=== PATIENT | female | born 1970 | race Caucasian/White ===

== ENCOUNTER → 2016-09-06 | Outpatient (CLI) | payer BC ==
[~2016-09-06] MED LIST: AZEL15GE TOP; DOXY20TA3 PO; SPIR50TA3 PO
== END | disposition home or self-care (01) ==
LOC: C.PAPS 13:18
PROVIDERS: ATTEND Obstetrics & Gynecology
DX: Z01.419 Encounter for gynecological examination (general) (routine) without abnormal findings (principal)

== ENCOUNTER → 2016-10-19 | Outpatient (CLI) | payer BC ==
--- NOTE | 2016-10-19 14:42 | MAMMOGRAPHY REPORT ---
BILATERAL DIGITAL SCREENING MAMMOGRAM TOMOSYNTHESIS WITH CAD: 10/19/2016 CLINICAL HISTORY: Routine screening. Patient has no complaints. TECHNIQUE: Breast tomosynthesis in addition to standard 2D mammography was performed. Current study was also evaluated with a Computer Aided Detection (CAD) system. COMPARISON: Comparison is made to exams dated: 10/14/2015 mammogram, 10/10/2014 mammogram, 10/08/2013 mammogram, 10/05/2012 mammogram, 10/04/2011 mammogram, and 09/27/2010 mammogram - [facility]. BREAST COMPOSITION: The tissue of both breasts is extremely dense, which lowers the sensitivity of mammography. FINDINGS: No suspicious masses, calcifications, or areas of architectural distortion are noted in e ither breast. There has been no significant interval change compared to prior exams. IMPRESSION: ACR BI-RADS CATEGORY 1: NEGATIVE There is no mammographic evidence of malignancy. A 1 year screening mammogram is recommended. The p atient will receive written notification of the results. Approximately 10% of breast cancers are not detected with mammography. A negative mammographic repor t should not delay biopsy if a clinically suggestive mass is present. Gayle Salinas M.D. ah/:10/19/2016 07:55:21 Bull Bucker: Kathleen DURON([place])(M), [facility] letter sent: Normal 1/2 BI-RADS Code: ACR BI-RADS Category 1: Negative
== END | disposition home or self-care (01) ==
LOC: C.MAMM 07:26
PROVIDERS: ATTEND Obstetrics & Gynecology
DX: Z12.31 Encounter for screening mammogram for malignant neoplasm of breast (principal)

== ENCOUNTER → 2017-09-08 | Outpatient (CLI) | payer OTHER | END | disposition home or self-care (01) | LOC: C.PAPS 11:35 | PROVIDERS: ATTEND Obstetrics & Gynecology | DX: Z01.419 Encounter for gynecological examination (general) (routine) without abnormal findings (principal); Z11.51 Encounter for screening for human papillomavirus (HPV) ==

== ENCOUNTER → 2017-10-03 | Outpatient (CLI) | payer OTHER ==
--- NOTE | 2017-10-03 12:44 | DIAGNOSTIC IMAGING REPORT ---
R HIP UNILATERAL 2 VIEWS, L HIP UNILATERAL 2 VIEWS, SI JOINTS 3 OR MORE VIEWS HISTORY: 47 years-old Female M53.3,M54.5,R10.2 chronic hip, pelvic and low back pain COMPARISON: None available TECHNIQUE: 2 views of the bilateral hips and 3 views of the SI joints FINDINGS: RIGHT HIP: No acute fracture, dislocation or significant degenerative changes. The imaged right hemipelvis appears intact. LEFT HIP: There is no acute fracture, dislocation or significant degenerative changes. The imaged left hemipelvis appears intact. SI JOINTS: No acute fracture, dislocation or significant degenerative changes. No erosive changes to suggest sacroiliitis. The imaged soft tissues appear unremarkable. IMPRESSION: No acute fracture or dislocation. The above report was generated using voice recognition software. It may contain grammatical, syntax or spelling errors. Electronically signed by: Mika Lynne M.D. 10/03/2017 12:42 PM Dictated Date/Time: 10/03/2017 12:39 PM
--- NOTE | 2017-10-03 12:44 | DIAGNOSTIC IMAGING REPORT ---
L-SPINE MIN 4 VIEWS ROUTINE CLINICAL HISTORY: M53.3,M54.5,R10.2 persistent low back pain COMPARISON STUDY: No previous studies for comparison. FINDINGS: No fractures or subluxations are visualized. No destructive lesions are evident. There are minor degenerative changes. IMPRESSION: Minor degenerative change. No fractures subluxations or destructive lesions are visualized Electronically signed by: Aime Kincaid M.D. 10/03/2017 12:42 PM Dictated Date/Time: 10/03/2017 12:41 PM
--- NOTE | 2017-10-03 12:54 | DIAGNOSTIC IMAGING REPORT ---
LEG LENGTH STUDY (WHOLE LEG) CLINICAL HISTORY: M53.3,M54.5,R10.2 leg length discrepancy COMPARISON STUDY: None FINDINGS: Maximum overall leg length of the right leg is 84.3 cm maximum overall leg length on the left is 84.9 cm differential is 6 mm. IMPRESSION: 6 mm leg length discrepancy with the leg length on the left longer than the right. The above report was generated using voice recognition software. It may contain grammatical, syntax or spelling errors. Electronically signed by: Orlando Choi M.D. 10/03/2017 12:52 PM Dictated Date/Time: 10/03/2017 12:42 PM
== END | disposition home or self-care (01) ==
LOC: C.RADBC 12:00
PROVIDERS: ATTEND Internal Medicine
DX: R10.2 Pelvic and perineal pain (principal); M54.5 Low back pain; M53.3 Sacrococcygeal disorders, not elsewhere classified

== ENCOUNTER → 2017-11-17 | Outpatient (CLI) | payer OTHER ==
[~2017-11-17] MED LIST changes: -AZEL15GE TOP; +IVER1CRE; -SPIR50TA3 PO
--- NOTE | 2017-11-20 14:33 | MAMMOGRAPHY REPORT ---
BILATERAL DIGITAL SCREENING MAMMOGRAM TOMOSYNTHESIS WITH CAD: 11/17/2017 CLINICAL HISTORY: Routine screening. Patient has no complaints. TECHNIQUE: Breast tomosynthesis in addition to standard 2D mammography was performed. Current study was also evaluated with a Computer Aided Detection (CAD) system. COMPARISON: Comparison is made to exams dated: 10/19/2016 mammogram, 10/14/2015 mammogram, 10/10/2014 ma mmogram, 10/08/2013 mammogram, 10/05/2012 mammogram, and 10/11/2011 ultrasound - [facility] enter. BREAST COMPOSITION: The tissue of both breasts is extremely dense, which lowers the sensitivity of m ammography. FINDINGS: No suspicious masses, calcifications, or areas of architectural distortion are noted in ei ther breast. There has been no significant interval change compared to prior exams. IMPRESSION: ACR BI-RADS CATEGORY 1: NEGATIVE There is no mammographic evidence of malignancy. A 1 year screening mammogram is recommended. The pa tient will receive written notification of the results. Approximately 10% of breast cancers are not detected with mammography. A negative mammographic report should not delay biopsy if a clinically suggestive mass is present. Gayle Salinas M.D. /:11/17/2017 14:49:39 Rn Telephone Triage: Barbara Hernandez, [facility] letter sent: Normal 1/2 BI-RADS Code: ACR BI-RADS Category 1: Negative
== END | disposition home or self-care (01) ==
LOC: C.MAMM 09:25
PROVIDERS: ATTEND Obstetrics & Gynecology
DX: Z12.31 Encounter for screening mammogram for malignant neoplasm of breast (principal)